=== PATIENT | male | born 1945 | race Caucasian/White ===

== ENCOUNTER → 2018-02-27 | Outpatient (CLI) | payer OTHER ==
[~2018-02-27] MED LIST: ASMANEX0.24 G1 IH; COUMADIN 5 MG TA5 M1 PO; COUMADIN6 MG PO; FORADIL12 MCG IH; HYDROCODONE-AP1 EA12 PO; LEVSIN SL; NORCO 5-325 TA1 EACH PO; PHENERGAN12.5 MG RC; PRILOSEC40 MG PO; TRIAMTERENE-HC1 EAC3 PO; ZOCOR 20 MG TAB20 MG PO
== END ==
LOC: RAD 01:42
DX: N63.10 Unspecified lump in the right breast, unspecified quadrant (principal); R92.8 Other abnormal and inconclusive findings on diagnostic imaging of breast

== ENCOUNTER 2018-04-05 05:28 | Day surgery (SDC) | payer OTHER ==
[~2018-04-05] VITALS: Ht 182.9 cm; Wt 117.9 kg
--- NOTE | ~2018-04-05 | PATH ---
[facility] [address] [place] [address] PATHOLOGY RPT PROCEDURE Name: SUSI DONALDSON Room #: DEP [facility] M.R.#: [id number] Admission: 04/05/18 Date of : 49 Discharge: 04/05/18 Report #: [id number] Path Case #: [id number] [facility] Accession Number: [id number] . 01 Material submitted: . PART A: RIGHT BREAST MASS PART B: LEFT LOWER ABDOMINAL WALL MASS . 01 Clinical history: . Right breast mass, lower left abdomen mass . 02 Diagnosis: A. Mature adipose tissue, right breast mass, excision: - Compatible with a lipoma - No breast tissue present. . B. Left lower abdominal mass, excision: - Fat necrosis surrounded by fibrous tissue and dystrophic calcifications. (IUV; 04/09/18) QRQ/04/09/2018 . 02 Electronically signed: . Sammi Gilliland MD, Pathologist NPI- [id number] . 01 Gross description: . A. The specimen is received in formalin, labeled "Susi Donaldson, right breast mass" and consists of multiple fragments of yellow-orange fibromembranous tissue measuring 5.3 x 3.3 x 1.0 cm in aggregate. Sectioning reveals no nodules or mass lesions. [employer] sections are submitted in cassettes A1-A3. . B. The specimen is received in formalin, labeled "Susi Donaldson, left lower abdominal wall mass" and consists of a segment of calcified yellow-orange tissue measuring 1.7 x 1.1 x 0.8 cm. It is entirely submitted in cassette B1 following decalcification. (SDY; 04/05/2018) SYU/SYU . 02 CPT . 532224, [id number] Performed at: [address] [id number] MD Ramakrishna Douglass MD Phone: [phone] Performed at: [address] [address] PATHOLOGY RPT PROCEDURE Name: SUSI DONALDSON JUANCARLOS Room #: DEP [facility]..#: [id number] Admission: 04/05/18 Date of : 49 Discharge: 04/05/18 Report #: [id number] Path Case #: [id number] [address] [id number] MD Sammi Gilliland MD Phone: [phone]
[~2018-04-05 05:28] MED LIST changes: +ACCUNEB SO1.25 MG/1 INH; +ALDACTONE25 MG PO; +ASMANEX220 MC1 INH; +AZITHROMYCIN 2250 MG PO; +CARDIZEM CD180 MG PO; +DEMADEX20 MG PO; +ELIQUIS5 MG PO; +FLONASE 0.05%50 MCG NASAL; +HYDROCODON-ACE1 EAC5 PO; +HYDROXYZINE HCL25 M2 PO; +LEVAQUIN 500 M500 M2 PO; +LOPERAMIDE 2 MG2 M1 PO; +MAGOX 400400 MG PO; +NITROGLYCERIN0.4 MG SUBLING; +POTASSIUM20 PO; +PREDNISONE 10 M10 MG PO; +PROTONIX 20 MG20 M1 PO; +RISPERDAL0.5 MG PO; +RYTHMOL SR225 MG PO; +SINGULAIR 10 MG10 MG PO; +STIOLTO RESPIMAT4 GM NASAL; +VITAMIN D-32000 UNIT PO; +ZOLOFT100 MG PO; +ZYRTEC10 M5 PO
[2018-04-05 11:24] LABS: HEMATOCRIT 43.6 % (42.0-52.0); HEMOGLOBIN 13.9 gm/dL (14.0-18.0)
[2018-04-05 11:35] LABS: CALCIUM 8.9 mg/dL (8.5-10.1); CREATININE 1.6 mg/dL (0.7-1.3)
[2018-04-05 12:31] VITALS: BP 147/84
[2018-04-05] MEDS ORDERED: TRAMADOL 50 MG50 MG PO (13:00)
[2018-04-05 13:21] VITALS: BP 147/84
== END 2018-04-05 14:05 | disposition home or self-care (01) ==
LOC: TBA 05:28 → OR 05:28
PROVIDERS: Surgery
DX: D17.1 Benign lipomatous neoplasm of skin and subcutaneous tissue of trunk (principal); K65.4 Sclerosing mesenteritis; I10 Essential (primary) hypertension; F32.9 Major depressive disorder, single episode, unspecified; J45.909 Unspecified asthma, uncomplicated; F41.9 Anxiety disorder, unspecified; Z95.0 Presence of cardiac pacemaker; K21.9 Gastro-esophageal reflux disease without esophagitis; Z86.718 Personal history of other venous thrombosis and embolism; Z87.891 Personal history of nicotine dependence; Z98.41 Cataract extraction status, right eye; Z95.5 Presence of coronary angioplasty implant and graft; Z98.42 Cataract extraction status, left eye; Z96.651 Presence of right artificial knee joint; Z98.890 Other specified postprocedural states; Z88.0 Allergy status to penicillin; Z88.8 Allergy status to other drugs, medicaments and biological substances; Z79.899 Other long term (current) drug therapy; Z79.891 Long term (current) use of opiate analgesic
CPT/HCPCS: 50010; 50101; 50386; 50403; 54118; 56526; 62110; 62850; 70005

== ENCOUNTER 2018-09-13 14:55 | Emergency (ER) | payer OTHER ==
[~2018-09-13] VITALS: Ht 182.9 cm; Wt 112.0 kg
--- NOTE | ~2018-09-13 | EKG ---
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1945 Requested By: Susan Mcnamara Order Number: [id number] MD: Jonnathan Corona Measurements Intervals [place] Rate: 101 P: NC: QRS: -46 QRSD: 87 T: 41 QT: 364 QTc: 472 Interpretive Statements Afib/flut and V-paced complexes No further rhythm analysis attempted due to paced rhythm Left anterior fascicular block Low voltage, extremity leads Borderline prolonged QT interval Compared to ECG 12/10/2009 23:16:23 Left anterior fascicular block now present Low QRS voltage now present Sinus rhythm no longer present Atrial premature complex(es) no longer present Electronically Signed On 09-14-2018 11:04:47 CDT by Jonnathan Corona [email or web address] <ELECTRONICALLY SIGNED> By: Jonnathan Corona MD 09/14/18 1104 [id number] 1553 Jonnathan Corona MD /EPI
[~2018-09-13 14:55] MED LIST changes: +TRAMADOL 50 MG50 MG PO
[2018-09-13 15:57] LABS: ABSOLUTE NEUTROPHILS 9.3 thou/uL (1.4-8.2); BASOPHILS 0.6 % (0.0-2.0); EOSINOPHILS 0.7 % (0.0-3.0); HEMATOCRIT 43.6 % (42.0-52.0); HEMOGLOBIN 13.8 gm/dL (14.0-18.0); LYMPHOCYTES 8.3 % (24.0-44.0); MCH 24.1 pg (26.0-34.0); MCHC 31.6 g/dL (28.0-37.0); MCV 76.2 fL (80.0-100.0); PLATELET COUNT 196 thou/uL (150-400); POLYS 79.4 % (36.0-66.0); RBC 5.72 mil/uL (4.50-6.00); RDW 18.7 % (10.5-14.5); WBC 11.7 thou/uL (4.0-11.0)
[2018-09-13 16:01] LABS: ANION GAP 9 mmol/L (7-16); BUN 20 mg/dL (7-18); CALCIUM 8.9 mg/dL (8.5-10.1); CHLORIDE 106 mmol/L (98-107); CO2 25 mmol/L (21-32); CREATININE 1.2 mg/dL (0.7-1.3); GLUCOSE 99 mg/dL (74-106); POTASSIUM 3.8 mmol/L (3.5-5.1); SODIUM 140 mmol/L (136-145)
[2018-09-13 16:09] LABS: TROPONIN-I <0.06 ng/mL (<0.06)
[2018-09-13 16:11] LABS: APTT 24.8 Seconds (24.5-32.8); PROTIME 10.5 Seconds (9.3-11.4)
[2018-09-13 18:31] LABS: URINE BILIRUBIN NEGATIVE (Negative); URINE BLOOD NEGATIVE (Negative); URINE CLARITY CLEAR; URINE COLOR YELLOW; URINE GLUCOSE-RANDOM* NEGATIVE (Negative); URINE KETONES NEGATIVE (Negative); URINE LEUKOCYTES-REFLEX NEGATIVE (Negative); URINE NITRITE-REFLEX NEGATIVE (Negative); URINE PROTEIN (DIPSTICK) NEGATIVE (Negative); URINE UROBILINOGEN 0.2 E.U./dl (0.2-1.0)
[2018-09-13] MEDS ORDERED: NORCO 10-325 T1 EACH PO (19:05)
[2018-09-13] MEDS ORDERED: SENNA-DOCUSATE1 EACH PO (19:05)
[2018-09-13] MEDS ORDERED: ACYCLOVIR 400400 MG PO (19:05)
[2018-09-13 19:30] VITALS: BP 149/93
== END 2018-09-13 19:30 | disposition home or self-care (01) ==
LOC: ER 14:55
PROVIDERS: Student in an Organized Health Care Education/Training Program
DX: B02.9 Zoster without complications (principal); I10 Essential (primary) hypertension; K21.9 Gastro-esophageal reflux disease without esophagitis; J45.909 Unspecified asthma, uncomplicated; G47.00 Insomnia, unspecified; Z86.718 Personal history of other venous thrombosis and embolism; Z86.14 Personal history of Methicillin resistant Staphylococcus aureus infection; Z96.651 Presence of right artificial knee joint; Z95.818 Presence of other cardiac implants and grafts; Z79.899 Other long term (current) drug therapy; Z88.0 Allergy status to penicillin; Z88.8 Allergy status to other drugs, medicaments and biological substances; W19.XXXA Unspecified fall, initial encounter; Y93.89 Activity, other specified; Y92.89 Other specified places as the place of occurrence of the external cause; Y99.8 Other external cause status

== ENCOUNTER → 2018-10-25 | Outpatient (CLI) | payer OTHER ==
[~2018-10-25] MED LIST changes: +ACYCLOVIR 400400 MG PO; +NORCO 10-325 T1 EACH PO; +SENNA-DOCUSATE1 EACH PO
== END ==
LOC: RAD 01:20
DX: R92.2 Inconclusive mammogram (principal)